=== PATIENT | female | born 1945 | race Caucasian/White ===

== ENCOUNTER 2019-05-28 14:47 | Outpatient (CLI) | payer MEDICARE, BC ==
--- NOTE | 2019-05-28 16:41 | RAD ---
PA AND LATERAL CHEST X-RAY: 05/28/19 HISTORY: Malignant neoplasm upper lobe. COMPARISON: 11/28/14. FINDINGS: There is a small right pleural effusion and associated atelectasis. Surgical clips overlie the right hilar region with radiopaque suture material in the right mid lung zone. Previously noted nodular den sity overlying the right suprahilar region is not definitely visualized on this exam. There is sugg estion of mild linear scarring in the right upper lung zone. The left lung appears clear. No discrete pulmonary nodule or mass is identified. The cardiac silhouette and pulmonary vasculature are within normal limits. Vascular calcifications se en in the thoracic aorta. Osseous structures have a normal appearance. No suspicious lytic or sclerot ic osseous lesions are identified. IMPRESSION: 1. Right pleural effusion with mild chronic lung changes. 2. Postsurgical changes right hemithorax. 3. No discrete pulmonary nodule or mass is appreciated on this exam. POS: BANDAR
== END 2019-05-28 14:48 | disposition home or self-care (01) ==
LOC: RAD 14:47
PROVIDERS: ATTEND Thoracic Surgery (Cardiothoracic Vascular Surgery)
DX: C34.10 Malignant neoplasm of upper lobe, unspecified bronchus or lung (principal); J90 Pleural effusion, not elsewhere classified; Z98.890 Other specified postprocedural states
CPT/HCPCS: 71046